=== PATIENT | male | born 1945 | race Caucasian/White ===

== ENCOUNTER → 2017-09-18 | Outpatient (CLI) | payer MEDICARE, OTHER ==
[~2017-09-18] MED LIST: ACEBUTOLOL HCL200 MG PO; AMLODIPINE BESYL5 MG PO; ASPIRIN81 MG PO; CARISOPRODOL350 MG PO; CLOPIDOGREL75 MG PO; CO Q-10100 MG PO; DISOPYRAMIDE P150 MG PO; FLAX SEED OIL1000 MG PO; GLUCOSAMINE &1 EAC1 PO; LEVOCETIRIZINE D5 MG PO; LIPITOR10 MG PO; ONE DAILY MULT1 EAC1 PEG; SAW PALMETTO C1 EACH PEG; ULTRAM50 MG PO; ZOLPIDEM TARTRA10 MG PO
[2017-09-18 08:56] LABS: BASOPHILS # (AUTO) 0.1 (0.0-0.1); EOSINOPHILS # (AUTO) 0.6 (0.0-0.4); EOSINOPHILS % 7.1 % (0.0-6.0); HEMATOCRIT 46.9 % (38.2-49.6); LYMPHOCYTES # (AUTO) 3.1 (1.0-3.2); LYMPHOCYTES % 36.2 % (18.0-39.1); MEAN CORPUSCULAR HEMOGLOBIN 35.1 pg (28-32); MEAN CORPUSCULAR HGB CONC 34.1 g/dL (31-35); MEAN CORPUSCULAR VOLUME 102.9 fL (81-99); MONOCYTES # (AUTO) 0.9 (0.2-0.8); MONOCYTES % 10.1 % (4.4-11.3); NEUTROPHILS # (AUTO) 3.9 (2.1-6.9); NEUTROPHILS % 45.1 % (38.7-80.0); PLATELET COUNT 282 x10e3/uL (140-360); RED BLOOD COUNT 4.56 x10e6/uL (4.3-5.7); RED CELL DISTRIBUTION WIDTH 12.4 % (11.7-14.4)
[2017-09-18 09:17] LABS: ALBUMIN 3.9 g/dL (3.5-5.0); ALBUMIN/GLOBULIN RATIO 1.4 (0.8-2.0); ANION GAP 13.7 mmol/L (8-16); CALCIUM 9.7 mg/dL (8.4-10.2); CHOL/HDL RATIO 2.7 (3.9-4.7); CREATININE, SERUM 1.58 mg/dL (0.72-1.25); POTASSIUM 4.7 mmol/L (3.5-5.1)
[2017-09-18 09:37] LABS: THYROID STIMULATING HORMONE 1.963 uIU/mL (0.350-4.940)
--- NOTE | 2017-09-18 11:18 | Diagnostic Imaging Report ---
PROCEDURE: Frontal and lateral views of the chest. COMPARISON: Chest radiograph 12/09/15. INDICATIONS: SHORTNESS OF BREATH FINDINGS: Lines/tubes: Left sided dual lead pacemaker with leads projecting over the right atrium and right ventricle. Lungs: The lungs are well inflated and clear. There is no evidence of pneumonia or pulmonary edema. Pleura: There is no pleural effusion or pneumothorax. Heart and mediastinum: The cardiomediastinal silhouette is unchanged. Atherosclerotic calcification of the aortic arch. Bones: No acute bony abnormality. Partially seen cervical spine fixation hardware. IMPRESSION: No acute cardiopulmonary disease. Dictated by: DAMIEN LEWIS M.D. on 09/18/2017 at 9:14 Electronically approved by: DAMIEN LEWIS M.D. on 09/18/2017 at 9:14
== END ==
LOC: RAD 08:19
PROVIDERS: ATTEND Internal Medicine Cardiovascular Disease
DX: R06.02 Shortness of breath (principal); N40.0 Benign prostatic hyperplasia without lower urinary tract symptoms; E03.9 Hypothyroidism, unspecified; N18.3 Chronic kidney disease, stage 3 (moderate); I11.9 Hypertensive heart disease without heart failure; I25.10 Atherosclerotic heart disease of native coronary artery without angina pectoris; E78.5 Hyperlipidemia, unspecified
CPT/HCPCS: 36415; 71046; 80053; 80061; 82550; 84152; 84443; 85025